=== PATIENT | female | born 1950 | race Caucasian/White ===

== ENCOUNTER → 2016-07-14 | Outpatient (CLI) | payer OTHER | LOC: MMPC 11:11 | PROVIDERS: ATTEND Internal Medicine | DX: E78.5 Hyperlipidemia, unspecified (principal); Z90.81 Acquired absence of spleen; E03.9 Hypothyroidism, unspecified | CPT/HCPCS: 99214; G0463 ==

== ENCOUNTER → 2016-08-01 | Outpatient (CLI) | payer OTHER ==
--- NOTE | 2016-08-01 15:44 | DI ---
MRI LEFT KNEE SCAN, 08/01/2016 12:45 PM: Clinical History: Left knee pain. Previous Exam: None at this facility. Technique: Axial, coronal, and sagittal PD and fat saturated PD; axial T1 weighted. There is minimal edema just anterior to the patellar tendon. There is no significant joint effusion. No abnormal bone signal pattern is present. Intermediate signal intensity is present in the anterior aspect of the medial collateral ligament and in the meniscofemoral and meniscotibial ligaments as wel l as in the medial patellofemoral ligament and the medial retinaculum consistent with chronic tears. The lateral collateral ligament and the anterior and posterior cruciate ligaments are normal. There i s a radial tear in the anterior portion of the body of the medial meniscus and this extends from the inner edge to the joint capsule. The lateral meniscus and the quadriceps and popliteus tendons in the tendon of the lateral head of the gastrocnemius muscle are normal. Mild tendinosis is present in the proximal and distal portions of the patellar tendon and there is a chronic partial tear of the tendo n of the medial head of the gastrocnemius muscle. There is almost complete effacement of the cartilag e on the medial facet of the patella. There is thinning of the articular cartilages of the medial and lateral compartments without a focal defect. Readin. There is a radial tear in the anterior half of the medial meniscus that extends to the capsule. C hronic partial tears are present in the medial retinaculum and meniscofemoral ligaments as well as th e anterior margin of the MCL. A chronic partial tear is present in the tendon of the medial head of t he gastrocnemius muscle. There is mild tendinosis of the patellar tendon. The medial facet of the pat kendra shows almost complete effacement of the cartilage. 2. The LCL, ACL, PCL, lateral meniscus, the quadriceps and popliteus tendons, and the tendon of the lateral head of the gastrocnemius muscle are normal. The cartilaginous surfaces of the medial and lat eral compartments show narrowing without a chondral defect.
== END ==
LOC: MRI 11:40
PROVIDERS: ATTEND Orthopaedic Surgery
DX: M25.562 Pain in left knee (principal); S83.242A Other tear of medial meniscus, current injury, left knee, initial encounter; M23.8X2 Other internal derangements of left knee; M76.52 Patellar tendinitis, left knee
CPT/HCPCS: 73721

== ENCOUNTER → 2016-08-06 | Outpatient (CLI) | payer OTHER ==
[2016-08-06 09:29] LABS: BASOPHILS # (AUTO) 0.07 10*3/UL; BASOPHILS % (AUTO) 0.4 % (0-1); EOSINOPHILS % (AUTO) 3.3 % (0-8); HEMATOCRIT 45.4 % (37.0-47.0); HEMOGLOBIN 15.6 g/dL (12.0-16.0); IMM GRAN % (AUTO) 0.2 % (0-5); IMM GRAN# (AUTO) 0.04 10*3/UL; LYMPHOCYTES # (AUTO) 4.94 10*3/uL; LYMPHOCYTES % (AUTO) 30.1 % (10-50); MEAN CORPUSCULAR HEMOGLOBIN 31.8 PG (27-31); MEAN CORPUSCULAR HGB CONC 34.4 g/dL (33-37); MONOCYTES % (AUTO) 6.7 % (5-15); NEUTROPHILS # (AUTO) 9.72 10*3/UL; NEUTROPHILS % (AUTO) 59.3 % (50-80); RDW COEFFICIENT OF VARIATION 14.8 % (11.5-14.5); RED BLOOD COUNT 4.91 10^6/uL (4.20-5.40); WHITE BLOOD COUNT 16.41 10^3/uL (4.8-10.8)
[2016-08-06 09:30] LABS: PLATELET MORPHOLOGY COMMENT NORMAL MORPHOLOGY (NORM)
[2016-08-06 10:36] LABS: ASPARTATE AMINO TRANSFERASE 36 IU/L (8-39); BILIRUBIN,TOTAL 0.8 mg/dL (0.3-1.2); BLOOD UREA NITROGEN 18 mg/dL (7-22); CALCIUM 9.7 mg/dL (8.7-10.7); CHLORIDE 105 meq/L (98-112); CREATININE 0.9 mg/dL (0.50-1.20); EST GLOMERULAR FILTRATION > 60 (>60 ml/min/1.73m(2)); GLUCOSE 154 mg/dL (78-110); POTASSIUM 3.8 meq/L (3.8-5.2); SODIUM 145 meq/L (135-145); TOTAL PROTEIN 7.7 g/dL (6.1-8.0)
== END ==
LOC: LAB 09:12
PROVIDERS: ATTEND Orthopaedic Surgery
DX: M25.562 Pain in left knee (principal)
CPT/HCPCS: 36415; 80053; 85025

== ENCOUNTER 2016-10-04 14:22 | Emergency (ER) | payer OTHER ==
--- NOTE | 2016-10-04 14:51 | PDOC ---
Lower Extremity Problem HPI - General Chief Complaint: Lower Extremity Problem/Injury Stated Complaint: LEFT LEG SWELLING Date Seen by Provider: 10/04/16 Time Seen by Provider: 14:25 Source: POSITIVE: Patient Exam Limitations: POSITIVE: No limitations Nurse's Notes Reviewed & Considered: Yes - History of Present Illness Initial Comments: The patient is a 66-year-old female who presents to the emergency department with complaints of left leg pain and swelling. She underwent arthroscopic knee surgery approximately [address] Muñoz. She states that the surgery went well and she has already completed her physical therapy and had been doing good. She states for the past week or so she has had pain in the left calf as well as swelling in the leg which is worse after she is up and walking around. She states that at night the swelling seems to go down to normal when she is lying down. She denies any fevers or chills, chest pain or shortness of breath or any other associated complaints. She does not have any known history of blood clots. - Patient Home Medications Home Medications: Home Medications Aspirin 1 tab PO DAILY 10/29/10 Multivitamins W-Minerals/Lut [Centrum Silver Tablet] 1 tab ORAL QD tab Ca Cmb No.1/Vit D3/B-6/FA/B12 [Vitamin D3 1,000 Unit Tablet] 1 tab PO DAILY tab 05/18/13 Calcium Carbonate [Tums] 1 tab PO TID tab 05/18/13 Fluocinolone Acetonide [Synalar] 60 ml TOPICAL TID PRN #1 bottle 04/06/15 Nitroglycerin 0.4 mg SL DAILY PRN #25 tab 05/21/15 Amitriptyline HCl 0.5 - 1 tab PO QHS PRN #90 tab 07/14/16 Losartan/Hydrochlorothiazide [Hyzaar 100-25 Tablet] 1 tab PO DAILY #90 tab 07/14 Metoprolol Tartrate 1 tab PO BID #180 tab 07/14/16 Simvastatin [Zocor] 1 tab PO QHS #90 tab 07/14/16 Zolpidem Tartrate [Ambien] 1 tab PO 1/2 to 1 tab qhs #90 tab 07/14/16 Levothyroxine Sodium [Synthroid] 1 tab ORAL QD #90 tab 07/15/16 Pantoprazole Sodium [Protonix] 1 tab PO DAILY #90 tab 07/15/16 - Patient Allergies Allergies/Adverse Reactions: Allergies Allergy/AdvReac Type Severity Reaction Status Date / Time amoxicillin trihydrate Allergy HIVES Verified 10/04/16 14:24 [From Amoxil] Past Medical History - heen HEENT History: Denies History Cardiovascular History: Hypertension, CAD (Previous 2007) Respiratory History: Denies History Gastrointestinal History: Denies History Genitourinary History: Denies History Endocrine History: Hypothyroidism Musculoskeletal History: Denies History Neurological History: Denies History Blood Disorders: Other (please comment) Additional Blood Disorders History: spleen Psychiatric History: Denies History History of Sexually Transmitted Diseases: No Cancer History: Denies History History of MDRO: No History of Other Communicable Diseases: No Alcohol Use: Occasionally Substance Use Type: None Previous Surgical History: Yes Type / Date of Surgery: Spleen, appy, hyst Anesthesia Reactions: No Significant Family History: No pertinent family hx Past Medical History Reviewed: Reviewed - No Changes ROS - Limitations ROS Limitations: No Limitations Constitution: DENIES: Chills, Fever Cardiovascular: DENIES: Chest Pain Respiratory: DENIES: Hurts To Breathe, Shortness Of Breath Neurological: REPORTS: Denies Neuro Symptoms Gastrointestinal: REPORTS: Denies GI Symptoms Lower Ext Problem Exam - General Appearance General Appearance: POSITIVE: Alert, Cooperative, No Acute Distress - Extremities Lower Extremity: POSITIVE: Other (Examination left lower extremity does reveal edema in the lower leg, she does have tenderness to the calf as well as a positive Homans sign, good dorsalis pedis pulse in the left foot, scars from recent knee arthroscope, well-healed) Vascular: POSITIVE: No Vascular Compromise - Neuro / Psych Neuro/Psych: POSITIVE: Sensation Normal, Motor Normal - HEENT HEENT: POSITIVE: Head Inspection Nml - Respiratory / CVS Respiratory / CVS: POSITIVE: No Respiratory Distress, Breath Sounds Normal, Regular Rate/Rhythm, Heart Sounds Normal Lower Ext Problem Progress - Results Reviewed by me Xrays/CTs/US Reviewed by me: Yes Radiology Findings: Venous Doppler of the left lower extremity is negative for DVT, she does have a small fluid collection in the calf possibly residual from recent knee scope - Patient's Progress MDM / ED Course: Venous Doppler of the left lower extremity was obtained. This was negative for DVT. The results were discussed with the patient. At this point she does have a small fluid collection noted in the calf of unknown etiology although may be related to recent surgery. Would recommend compression stockings and NSAIDs as an anti-inflammatory. Return to the emergency room if increased pain or swelling, fever, any worsening or change in symptoms. She does have a follow- up with her orthopedic surgeon Dr. Muñoz on Thursday which she was advised to keep. - Consult Counseled: POSITIVE: Patient, RE: Radiology Results, RE: DX, RE: Need for F/U Patient Care Time - Estimated PCT Patient Care Time (In Minutes): 20 Vital Signs - VS Reviewed Vital Signs Reviewed: Yes Discharge Clinical Impression: Leg edema, left Discharge Disposition: Discharged to Home Condition: Fair Patient Instructions Given at Discharge: Leg Edema (ED) Additional Instructions: The ultrasound of your left leg revealed that there was no evidence of blood clot. There was a small fluid collection in the calf which may be a residual from your recent knee scope. At this point I would recommend taking ibuprofen 600 mg every 6 hours with food as needed for an anti-inflammatory and pain medication. I would also recommend compression stockings to be put on in the morning before the leg swells. Return to the emergency room if increased pain or swelling, fevers or chills, any worsening or change in symptoms. Keep your follow-up appointment with Dr. Muñoz on Thursday. Follow Up With: THEA MEJIA [Primary Care Provider] -
[2016-10-04 15:11] VITALS: RESP 16; TEMP 98.7
--- NOTE | 2016-10-04 15:39 | DI ---
HISTORY: Left leg swelling and calf pain. Left knee scope performed 6 weeks ago. PREVIOUS EXAM: July 21, 2007 TECHNIQUE: Multiple grayscale and color Doppler sonographic images are obtained through the deep vei ns of the left lower extremity. FINDINGS: There is no evidence of deep venous thrombosis and there is complete coaptation upon grade d compression throughout the deep veins of the left lower remedy. Within the left calf area, in the deep soft tissues, there is a 5.4 cm fluid collection measuring jose alberto roximately 5 mm in thickness. This appears to be just superficial to the soleus. IMPRESSION: 1. No evidence of deep venous thrombosis. 2. 5.4 x 0.5 cm fluid collection within the deep soft tissues of the left calf. Differential diagnosi s includes a dissecting Holman's cyst or a hematoma.
== END 2016-10-04 15:26 | disposition home or self-care (01) ==
LOC: ER 14:22
DX: R60.0 Localized edema (principal); M79.605 Pain in left leg; Z98.890 Other specified postprocedural states
CPT/HCPCS: 93971; 99282

== ENCOUNTER → 2016-10-23 | Outpatient (CLI) | payer OTHER ==
--- NOTE | 2016-10-23 15:10 | DI ---
VENOUS DOPPLER ULTRASOUND OF THE LEFT LOWER EXTREMITY, 10/23/2016 1:01 PM: Clinical History: Left calf pain with swelling. Previous Exam: 10/04/2016. Technique: 2D real-time imaging is supplemented with color Doppler ultrasound. Compression and augmen tation maneuvers were performed. The deep venous system from the groin to the popliteal fossa is norm al. The greater saphenous vein is normal. There is edema of the subcutaneous fat in the calf region a s well as down to the ankle. There is a fluid collection on the medial aspect of the calf that is clinton p to the subcutaneous fat and superficial to the gastrocnemius muscle. There are internal echoes cons istent with localized. This is the same lesion that was seen on the previous study but it has increas ed in size. The estimated length is 10 cm and the AP thickness is 2 cm. The estimated width is approx imately 6 cm. The previous measurements for this lesion were 5 x 1 x 3 cm. Scans over the ankle regio n show no free fluid collections but only edema of the subcutaneous fat. Readin. Negative venous Doppler ultrasound of the left lower extremity. 2. The fluid collection seen on the previous study over the region of the medial aspect of the calf has virtually doubled in size and there are some bright echoes within it suggesting clotted blood. Ex tensive edema of the subcutaneous fat is noted in the lower leg.
[2016-10-23 15:50] LABS: BASOPHILS % (AUTO) 0.7 % (0-1); EOSINOPHILS % (AUTO) 10.8 % (0-8); HEMATOCRIT 44.1 % (37.0-47.0); HEMOGLOBIN 15.2 g/dL (12.0-16.0); LYMPHOCYTES # (AUTO) 5.67 10*3/uL; MEAN CORPUSCULAR HEMOGLOBIN 31.1 PG (27-31); MEAN CORPUSCULAR HGB CONC 34.5 g/dL (33-37); MEAN CORPUSCULAR VOLUME 90.4 FL (81-99); MEAN PLATELET VOLUME 9.5 FL (7.4-12.2); MONOCYTES # (AUTO) 1.01 10*3/UL (0.3-0.8); MONOCYTES % (AUTO) 7.2 % (5-15); NEUTROPHILS # (AUTO) 5.64 10*3/UL; NEUTROPHILS % (AUTO) 40.5 % (50-80); RED BLOOD COUNT 4.88 10^6/uL (4.20-5.40)
[2016-10-23 15:51] LABS: PLATELET MORPHOLOGY COMMENT NORMAL MORPHOLOGY (NORM); RBC MORPHOLOGY COMMENT NORMAL MORPHOLOGY (NORM); WBC MORPHOLOGY COMMENT NORMAL MORPHOLOGY (NORM)
[2016-10-23 16:03] LABS: BLOOD UREA NITROGEN 14 mg/dL (7-22); CALCIUM 9.5 mg/dL (8.7-10.7); EST GLOMERULAR FILTRATION > 60 (>60 ml/min/1.73m(2)); SERUM ALBUMIN 4.1 g/dL (3.5-4.8)
== END ==
LOC: US 12:59
PROVIDERS: ATTEND Physician Assistant Surgical
DX: M79.662 Pain in left lower leg (principal); M79.89 Other specified soft tissue disorders
CPT/HCPCS: 36415; 80053; 85025; 85610; 85730; 93971

== ENCOUNTER → 2016-12-09 | Outpatient (CLI) | payer OTHER | LOC: MMPC 09:00 | DX: J32.0 Chronic maxillary sinusitis (principal); R51 Headache | CPT/HCPCS: 99213; G0463 ==